=== PATIENT | female | born 1950 | race American Indian/Alaskan Native ===

== ENCOUNTER 2019-04-07 14:29 | Emergency (ER) | payer MEDICARE ==
[2019-04-07 15:17] VITALS: BP 174/100
--- NOTE | 2019-04-07 15:21 | Event Note ---
ED Screening Note Date of service: 04/07/19 Time: 15:15 ED Screening Note: Pt presents with vague complaints of neck pain, abdominal pain, back pain, irght arm pain for the past few days pt has dementia is and is a poor historian No ttp of spine Daughter states she fell a few days ago and seems more confused than normal This initial assessment/diagnostic orders/clinical plan/treatment(s) is/are subject to change based on patients health status, clinical progression and re- assessment by fellow clinical providers in the ED. Further treatment and workup at subsequent clinical providers discretion. Patient/guardian urged not to elope from the ED as their condition may be serious if not clinically assessed and managed. Initial orders include: labs CT UA
--- NOTE | 2019-04-07 16:16 | Cat Scan Report ---
CT BRAIN: 04/07/2019 INDICATION / CLINICAL INFORMATION: altered mental status. COMPARISON: None available. FINDINGS: BRAIN/INTRACRANIAL STRUCTURES: Unenhanced CT images of the brain demonstrate no evidence of acute int racranial abnormality. Ventricles and sulci are normal in size and shape for a patient of this age. There is no evidence of acute ischemic injury, hemorrhage, or mass. There are no abnormal extra-axial fluid collections. EXTRACRANIAL STRUCTURES: Unremarkable. IMPRESSION: No acute abnormality. All CT scans at this location are performed using dose reduction to ALARA by means of automated expos ure control. Signer Name: Riley Win MD Signed: 04/07/2019 4:12 PM Workstation Name: [id number]
--- NOTE | 2019-04-07 16:40 | XRay Report ---
CHEST 2 VIEWS INDICATION / CLINICAL INFORMATION: altered mental status. COMPARISON: None available. FINDINGS: SUPPORT DEVICES: None. HEART / MEDIASTINUM: No significant abnormality. LUNGS / PLEURA: No significant pulmonary or pleural abnormality. No pneumothorax. ADDITIONAL FINDINGS: No significant additional findings. IMPRESSION: 1. No acute findings. Signer Name: Dre Conti MD Signed: 04/07/2019 4:36 PM Workstation Name: [id number]
--- NOTE | 2019-04-07 16:41 | XRay Report ---
Right humerus 2 views INDICATION: Right humerus pain after fall IMPRESSION: No fracture or subluxation of the humerus identified. Signer Name: Dre Conti MD Signed: 04/07/2019 4:37 PM Workstation Name: [id number]
[2019-04-07 17:11] LABS: Basophils # (Auto) 0.1 K/mm3 (0.0-0.1); Basophils % (Auto) 1.3 % (0.0-1.8); Eosinophils # (Auto) 0.1 K/mm3 (0.0-0.4); Hematocrit 37.8 % (30.3-42.9); Hemoglobin 12.5 gm/dl (10.1-14.3); Lymphocytes % (Auto) 38.4 % (13.4-35.0); Mean Corpuscular HGB Conc 33 % (30-34); Mean Corpuscular Volume 83 fl (79-97); Monocytes # (Auto) 0.4 K/mm3 (0.0-0.8); Monocytes % (Auto) 8.2 % (0.0-7.3); Platelet Count 168 K/mm3 (140-440); Red Blood Count 4.54 M/mm3 (3.65-5.03); Red Cell Distribution Width 14.2 % (13.2-15.2)
[2019-04-07 17:14] LABS: Alanine Aminotransferase 8 units/L (7-56); Albumin 4.6 g/dL (3.9-5); BUN/Creatinine Ratio 22; Blood Urea Nitrogen 13 mg/dL (7-17); Hemolysis Index 8
[2019-04-07] MEDS ORDERED: traMADol 50 MG TAB PO ONE (17:20)
[2019-04-07] MEDS ORDERED: METOPROLOL TARTRATE 50 MG TAB PO ONE (17:21)
--- NOTE | 2019-04-07 18:14 | Emergency Department Report ---
ED General Adult HPI - General Chief complaint: Abdominal Pain Stated complaint: BACK/ABD PAIN Time Seen by Provider: 04/07/19 15:15 Source: family Mode of arrival: Ambulatory Limitations: Other - History of Present Illness Initial comments: Patient is a 68-year-old Female with a past medical history of early dementia who is here secondary to having some back and right upper extremity pain past 3 days. Patient's son brought the patient in. The patient and her son a very poor historians. On screening exam patient mentioned that she has some mild a bdominal discomfort as well however she is not complaining of this under my exam. Patient only complaint is that she has pain in the right upper extremity from the elbow to the shoulder. Patient states it is worse with movement but she has no pain with palpation has been no swelling. Patient's daughter states that she also complained of some upper back pain as well. Patient's and family state that she she may have fallen sometime in the last week but they were unable to give any details. Patient denies chest pain or shortness of breath at this time. Severity scale (0 -10): 5 - Related Data Home Medications Medication Instructions Recorded Confirmed Last Taken Aspirin [Aspirin BABY CHEW TAB] 81 mg PO QDAY 05/26/15 02/10/16 02/05/16 09:00 Lovastatin [Altoprev] 20 mg PO QPM 05/26/15 02/10/16 02/09/16 21:00 Cholecalciferol Vit D3 [Vitamin D3] 1,000 unit PO QDAY 02/03/16 02/10/16 02/05/16 09:00 Previous Rx's Medication Instructions Recorded Last Taken Type LORazepam [Ativan] 0.5 mg PO Q6H PRN 2 Days #5 tablet 11/18/17 Unknown Rx Diclofenac Sodium [Voltaren] 100 gm TP Q6H #1 gel..gram. 03/13/18 Unknown Rx Magnesium Citrate [Citrate of 296 ml PO ONCE #1 solution 03/13/18 Unknown Rx Magnesia] traMADol [Ultram 50 MG tab] 50 mg PO Q6HR PRN #11 tablet 03/13/18 Unknown Rx Amlodipine Besylate [Norvasc] 5 mg PO DAILY #30 tablet 04/07/19 Unknown Rx Ibuprofen [Motrin 400 MG tab] 400 mg PO Q8H PRN #20 tablet 04/07/19 Unknown Rx methOCARBAMOL [Robaxin TAB] 500 mg PO Q6H PRN #14 tablet 04/07/19 Unknown Rx Allergies Allergy/AdvReac Type Severity Reaction Status Date / Time No Known Allergies Allergy Verified 05/26/15 09:43 ED Review of Systems ROS: Stated complaint: BACK/ABD PAIN Other details as noted in HPI Comment: All other systems reviewed and negative ED Past Medical Hx - Past Medical History Hx HIV: No - Surgical History Additional Surgical History: Colon resection for colon cancer X3 YRS - Social History Smoking Status: Never Smoker Substance Use Type: None - Medications Home Medications: Home Medications Medication Instructions Recorded Confirmed Last Taken Type Aspirin [Aspirin BABY CHEW TAB] 81 mg PO QDAY 05/26/15 02/10/16 02/05/16 09:00 History Lovastatin [Altoprev] 20 mg PO QPM 05/26/15 02/10/16 02/09/16 21:00 History Cholecalciferol Vit D3 [Vitamin D3] 1,000 unit PO QDAY 02/03/16 02/10/16 02/05/16 09:00 History LORazepam [Ativan] 0.5 mg PO Q6H PRN 2 Days #5 tablet 11/18/17 Unknown Rx Diclofenac Sodium [Voltaren] 100 gm TP Q6H #1 gel..gram. 03/13/18 Unknown Rx Magnesium Citrate [Citrate of 296 ml PO ONCE #1 solution 03/13/18 Unknown Rx Magnesia] traMADol [Ultram 50 MG tab] 50 mg PO Q6HR PRN #11 tablet 03/13/18 Unknown Rx Amlodipine Besylate [Norvasc] 5 mg PO DAILY #30 tablet 04/07/19 Unknown Rx Ibuprofen [Motrin 400 MG tab] 400 mg PO Q8H PRN #20 tablet 04/07/19 Unknown Rx methOCARBAMOL [Robaxin TAB] 500 mg PO Q6H PRN #14 tablet 04/07/19 Unknown Rx ED Physical Exam - General Limitations: Other General appearance: alert, in no apparent distress - Head Head exam: Present: atraumatic, normocephalic - Eye Eye exam: Present: normal appearance, PERRL, EOMI - ENT ENT exam: Present: mucous membranes moist - Neck Neck exam: Present: normal inspection - Respiratory Respiratory exam: Present: normal lung sounds bilaterally. Absent: respiratory distress, wheezes, rales, rhonchi - Cardiovascular Cardiovascular Exam: Present: regular rate, normal rhythm, normal heart sounds. Absent: systolic murmur, diastolic murmur, rubs, gallop - GI/Abdominal GI/Abdominal exam: Present: soft, normal bowel sounds. Absent: distended, tenderness, guarding, rebound - Extremities Exam Extremities exam: Present: normal inspection - Back Exam Back exam: Present: normal inspection - Neurological Exam Neurological exam: Present: alert, oriented X3 - Psychiatric Psychiatric exam: Present: normal affect, normal mood - Skin Skin exam: Present: warm, dry, intact, normal color. Absent: rash ED Course Vital Signs 04/07/19 04/07/19 14:43 17:44 Temperature 98.3 F Pulse Rate 118 H 118 H Respiratory 18 Rate Blood Pressure 174/100 174/100 O2 Sat by Pulse 98 Oximetry ED Medical Decision Making - Lab Data Result diagrams: 04/07/19 15:45 04/07/19 15:45 Lab Results 04/07/19 04/07/19 04/07/19 Range/Units 15:45 15:45 15:45 WBC 5.1 (4.5-11.0) K/mm3 RBC 4.54 (3.65-5.03) M/mm3 Hgb 12.5 (10.1-14.3) gm/dl Hct 37.8 (30.3-42.9) % MCV 83 (79-97) fl MCH 27 L (28-32) pg MCHC 33 (30-34) % RDW 14.2 (13.2-15.2) % Plt Count 168 (140-440) K/mm3 Lymph % (Auto) 38.4 H (13.4-35.0) % [place] % (Auto) 8.2 H (0.0-7.3) % Eos % (Auto) 1.0 (0.0-4.3) % Baso % (Auto) 1.3 (0.0-1.8) % Lymph # 2.0 (1.2-5.4) K/mm3 [place] # 0.4 (0.0-0.8) K/mm3 Eos # 0.1 (0.0-0.4) K/mm3 Baso # 0.1 (0.0-0.1) K/mm3 Seg Neutrophils % 51.1 (40.0-70.0) % Seg Neutrophils # 2.6 (1.8-7.7) K/mm3 Sodium 142 (137-145) mmol/L Potassium 3.9 (3.6-5.0) mmol/L Chloride 104.3 (98-107) mmol/L Carbon Dioxide 22 (22-30) mmol/L Anion Gap 20 mmol/L BUN 13 (7-17) mg/dL Creatinine 0.6 L (0.7-1.2) mg/dL Estimated GFR > 60 ml/min BUN/Creatinine Ratio 22 % Glucose 96 (65-100) mg/dL Calcium 10.0 (8.4-10.2) mg/dL Total Bilirubin 0.80 (0.1-1.2) mg/dL AST 18 (5-40) units/L ALT 8 (7-56) units/L Alkaline Phosphatase 80 (35-129) units/L Troponin T < 0.010 (0.00-0.029) ng/mL Total Protein 8.0 (6.3-8.2) g/dL Albumin 4.6 (3.9-5) g/dL Albumin/Globulin Ratio 1.4 % TSH 0.610 (0.270-4.200) mlU/mL - Radiology Data CT of the head without contrast was within normal limits. X-ray of the right humerus shows no acute process. Chest x-ray also shows no acute process. Patient does have some arthritic changes in the right shoulder and probably in the lower C-spine what is visualized on the x-ray. - Medical Decision Making Patient is a very poor historian and is complaining of pain in the upper back as well as the right upper arm. Because of the patient's poor history giving and because of the possibility of a fall CT of the head was done which was negative for subdural hematoma or other intracranial process. X-ray of the humerus was done also secondary to the possibility of fall and possible fracture which was negative for fracture. Patient's blood pressure was elevated. Family does not believe that she is on blood pressure medications, cannot confirm 100%. Patient was given Lopressor. Patient also given Ultram for her pain. Patient likely is having some cervical radiculopathy-type pain secondary to arthritis in her neck. There is no midline tenderness warranting a x-ray. Patient be discharged home with follow-up with primary care. Critical care attestation.: If time is entered above; I have spent that time in minutes in the direct care of this critically ill patient, excluding procedure time. ED Disposition Clinical Impression: Cervical radiculopathy, Musculoskeletal pain, Hypertensive urgency Fall with injury Qualifiers: Encounter type: initial encounter Qualified Code(s): W19.XXXA - Unspecified fall, initial encounter Disposition: TO HOME OR SELFCARE Is pt being admited?: No Does the pt Need Aspirin: No Condition: Stable Instructions: Hypertension (ED), Cervical Radiculopathy (ED), Musculoskeletal Pain (ED) Referrals: PHU KRISHNAMURTHY MD [Staff Physician] - 3-5 Days Time of Disposition: 18:16
== END 2019-04-07 18:30 | disposition home or self-care (01) ==
LOC: ED 14:29
DX: M54.12 Radiculopathy, cervical region (principal); M79.621 Pain in right upper arm; M54.6 Pain in thoracic spine; I16.0 Hypertensive urgency; Z79.82 Long term (current) use of aspirin; Z79.1 Long term (current) use of non-steroidal anti-inflammatories (NSAID); Z79.899 Other long term (current) drug therapy; W01.198A Fall on same level from slipping, tripping and stumbling with subsequent striking against other object, initial encounter; Y93.89 Activity, other specified; Y92.89 Other specified places as the place of occurrence of the external cause; Y99.8 Other external cause status
CPT/HCPCS: 36415; 70450; 71046; 80053; 84443; 84484; 85025; 99284

== ENCOUNTER 2019-05-25 12:07 | Emergency (ER) | payer MEDICARE ==
[2019-05-25 12:55] LABS: Basophils # (Auto) 0.1 K/mm3 (0.0-0.1); Basophils % (Auto) 1.8 % (0.0-1.8); Eosinophils % (Auto) 0.3 % (0.0-4.3); Hematocrit 37.5 % (30.3-42.9); Hemoglobin 12.5 gm/dl (10.1-14.3); Lymphocytes # (Auto) 1.7 K/mm3 (1.2-5.4); Lymphocytes % (Auto) 36.5 % (13.4-35.0); Mean Corpuscular HGB Conc 33 % (30-34); Mean Corpuscular Volume 84 fl (79-97); Monocytes # (Auto) 0.3 K/mm3 (0.0-0.8); Monocytes % (Auto) 7.4 % (0.0-7.3); Platelet Count 198 K/mm3 (140-440); Red Blood Count 4.48 M/mm3 (3.65-5.03); Red Cell Distribution Width 15.4 % (13.2-15.2)
[2019-05-25 13:16] LABS: Alanine Aminotransferase 8 units/L (7-56); Albumin 4.5 g/dL (3.9-5); BUN/Creatinine Ratio 22; Blood Urea Nitrogen 11 mg/dL (7-17); Calcium 9.9 mg/dL (8.4-10.2); Hemolysis Index 42
[2019-05-25] MEDS ORDERED: KETOROLAC 30 MG/1 ML INJ IV ONE (18:22)
[2019-05-25] MEDS ORDERED: ONDANSETRON 4 MG/2 ML INJ IV ONE (18:22)
[2019-05-25] MEDS ORDERED: SODIUM CHLORIDE 0.9% 1000 ML 1,000 ML IV ONE (18:22)
[2019-05-25] MEDS ORDERED: FAMOTIDINE 20 MG/2 ML INJ IV ONE (18:22)
--- NOTE | 2019-05-25 20:02 | Cat Scan Report ---
CT ABDOMEN AND PELVIS WITH IV CONTRAST INDICATION: svere Abd pain hx of colon cancer and resection. COMPARISON: None available. TECHNIQUE: All CT scans at this facility use dose modulation, automated exposure control, iterative reconstructi on or weight based dosing, when appropriate, to reduce radiation dose to as low as reasonably achieva ble. FINDINGS: Lung Bases: No significant abnormality. Skeletal System: No acute abnormality. ABDOMEN: Liver: There is a punctate hypodensity in the inferior right hepatic lobe, this is too small to kristie cterize but likely a cyst. Liver is otherwise unremarkable. Gallbladder: No significant abnormality. Bile Ducts: No significant abnormality. Pancreas: There is no pancreatic inflammation. The pancreatic duct is mildly prominent. There appears to be accessory duct of Santorini (axial images 73-76). Spleen: No significant abnormality. Adrenals: No significant abnormality. Right Kidney: No significant abnormality. Left Kidney: No significant abnormality. Upper GI tract: No significant abnormality. Lymph Nodes: No significant adenopathy. Aorta: No significant abnormality. Additional Findings: No significant abnormality. PELVIS: Colon: No acute abnormality. Constipation is noted. There are postsurgical changes at the right col on. Urinary Bladder and Distal Ureters: No significant abnormality. Appendix: Not visualized. Lymph Nodes: No significant adenopathy. Additional Findings: There is a complex lesion in the left hemipelvis with apparent cystic and solid components. This measures 5.2 x 4.3 cm on axial image 124. There are prominent left ovarian veins. IMPRESSION: 1. No acute inflammatory process or bowel obstruction. 2. Complex 5.2 x 4.3 cm lesion in the left hemipelvis may be ovarian/adnexal in etiology. This could be a complex/hemorrhagic cyst. Sonographic follow-up is recommended in 4-6 weeks. 3. Constipation. 4. Additional incidental findings as above. Signer Name: Jim Warner MD Signed: 05/25/2019 7:58 PM Workstation Name: [id number]
--- NOTE | 2019-05-25 20:27 | Emergency Department Report ---
ED General Adult HPI - General Chief complaint: Abdominal Pain Stated complaint: STOMACH PAIN Time Seen by Provider: 05/25/19 18:08 Source: patient Mode of arrival: Ambulatory Limitations: No Limitations - History of Present Illness Initial comments: Patient is a 68-year-old Bangl[place] female who is presenting with abdominal pain. Patient is a very poor historian secondary to probable dementia. Patient is having a difficult time giving timeframes for her complaint. Patient is presenting with abdominal discomfort. When asking how long she's had the abdominal discomfort what exactly prompted her to come into the emergency department today she stated that she was upset with how she was treated in the waiting room. I apologize for her weight and for any perceived rudeness that she had to deal with them again asked how can I help her today. Patient was fixated on telling me about things that were not explaining her chief complaint. Patient took quite a bit of time to redirect. Patient did eventually state that she has some abdominal pain was unable to say how long her abdomen is been hurting. She stated at one point that she was vomiting but then also adamantly denied vomiting. It's unknown whether the patient said fevers chills cough cold or congestion. I asked the patient could she give a urine sample and she stated yes however after giving her the urine cup the patient states that she was just going to "hold onto the cup". The patient's son accompanied the patient. Patient's son was in and out of the room quite frequently and also is a poor historian as well. Severity scale (0 -10): 4 - Related Data Home Medications Medication Instructions Recorded Confirmed Last Taken Aspirin [Aspirin BABY CHEW TAB] 81 mg PO QDAY 05/26/15 02/10/16 02/05/16 09:00 Lovastatin [Altoprev] 20 mg PO QPM 05/26/15 02/10/16 02/09/16 21:00 Cholecalciferol Vit D3 [Vitamin D3] 1,000 unit PO QDAY 02/03/16 02/10/16 02/05/16 09:00 Previous Rx's Medication Instructions Recorded Last Taken Type LORazepam [Ativan] 0.5 mg PO Q6H PRN 2 Days #5 tablet 11/18/17 Unknown Rx Diclofenac Sodium [Voltaren] 100 gm TP Q6H #1 gel..gram. 03/13/18 Unknown Rx Magnesium Citrate [Citrate of 296 ml PO ONCE #1 solution 03/13/18 Unknown Rx Magnesia] traMADoL [Ultram 50 MG tab] 50 mg PO Q6HR PRN #11 tablet 03/13/18 Unknown Rx Amlodipine Besylate [Norvasc] 5 mg PO DAILY #30 tablet 04/07/19 Unknown Rx Ibuprofen [Motrin 400 MG tab] 400 mg PO Q8H PRN #20 tablet 04/07/19 Unknown Rx methOCARBAMOL [Robaxin TAB] 500 mg PO Q6H PRN #14 tablet 04/07/19 Unknown Rx Dicyclomine [Bentyl] 20 mg PO QID #10 tablet 05/25/19 Unknown Rx Docusate Sodium [Colace] 100 mg PO BID #30 capsule 05/25/19 Unknown Rx Nitrofurantoin [place]/M-Cryst 100 mg PO Q12HR #14 capsule 05/25/19 Unknown Rx [Macrobid CAP] traMADoL [Ultram] 50 mg PO Q6HR PRN #12 tablet 05/25/19 Unknown Rx Allergies Allergy/AdvReac Type Severity Reaction Status Date / Time No Known Allergies Allergy Verified 05/26/15 09:43 ED Review of Systems ROS: Stated complaint: STOMACH PAIN Other details as noted in HPI Comment: Unobtainable due to pts medical conditions ED Past Medical Hx - Past Medical History Hx HIV: No - Surgical History Additional Surgical History: Colon resection for colon cancer X3 YRS - Social History Smoking Status: Never Smoker - Medications Home Medications: Home Medications Medication Instructions Recorded Confirmed Last Taken Type Aspirin [Aspirin BABY CHEW TAB] 81 mg PO QDAY 05/26/15 02/10/16 02/05/16 09:00 History Lovastatin [Altoprev] 20 mg PO QPM 05/26/15 02/10/16 02/09/16 21:00 History Cholecalciferol Vit D3 [Vitamin D3] 1,000 unit PO QDAY 02/03/16 02/10/16 02/05/16 09:00 History LORazepam [Ativan] 0.5 mg PO Q6H PRN 2 Days #5 tablet 11/18/17 Unknown Rx Diclofenac Sodium [Voltaren] 100 gm TP Q6H #1 gel..gram. 03/13/18 Unknown Rx Magnesium Citrate [Citrate of 296 ml PO ONCE #1 solution 10/16/18 Unknown Rx Magnesia] traMADoL [Ultram 50 MG tab] 50 mg PO Q6HR PRN #11 tablet 03/13/18 Unknown Rx Amlodipine Besylate [Norvasc] 5 mg PO DAILY #30 tablet 04/07/19 Unknown Rx Ibuprofen [Motrin 400 MG tab] 400 mg PO Q8H PRN #20 tablet 04/07/19 Unknown Rx methOCARBAMOL [Robaxin TAB] 500 mg PO Q6H PRN #14 tablet 04/07/19 Unknown Rx Dicyclomine [Bentyl] 20 mg PO QID #10 tablet 05/25/19 Unknown Rx Docusate Sodium [Colace] 100 mg PO BID #30 capsule 05/25/19 Unknown Rx Nitrofurantoin [place]/M-Cryst 100 mg PO Q12HR #14 capsule 05/25/19 Unknown Rx [Macrobid CAP] traMADoL [Ultram] 50 mg PO Q6HR PRN #12 tablet 05/25/19 Unknown Rx ED Physical Exam - General Limitations: No Limitations General appearance: alert, in no apparent distress - Head Head exam: Present: atraumatic, normocephalic - Eye Eye exam: Present: normal appearance, PERRL, EOMI - ENT ENT exam: Present: mucous membranes moist - Neck Neck exam: Present: normal inspection - Respiratory Respiratory exam: Present: normal lung sounds bilaterally. Absent: respiratory distress, wheezes, rales, rhonchi - Cardiovascular Cardiovascular Exam: Present: regular rate, normal rhythm. Absent: systolic murmur, diastolic murmur, rubs, gallop - GI/Abdominal GI/Abdominal exam: Present: soft, tenderness (diffuse), normal bowel sounds. Absent: distended, guarding, rebound, rigid - Extremities Exam Extremities exam: Present: normal inspection - Back Exam Back exam: Present: normal inspection - Neurological Exam Neurological exam: Present: alert, oriented X3 - Psychiatric Psychiatric exam: Present: normal affect, normal mood - Skin Skin exam: Present: warm, dry, intact, normal color. Absent: rash ED Course Vital Signs 05/25/19 05/25/19 05/25/19 12:09 19:35 20:05 Temperature 98.1 F Pulse Rate 106 H Respiratory 18 18 16 Rate Blood Pressure 142/89 O2 Sat by Pulse 100 Oximetry - Reevaluation(s) Reevaluation #1: 05/25/19 20:26 Attempted to explain the patient's CT findings to the patient and her son. He does express understanding and that he he will need to take her to a senior medical technologist for further management. Patient's CT shows a hemorrhagic adnexal masses likely hemorrhagic cyst however tumor or malignancy cannot be ruled out at this time. Also at this time we are attempting to perform a straight cath on the patient. Patient for the last several hours is just been holding onto the urine cup and will not give a urine sample. I would like to see a urinalysis before discharge and patient as infection has not been ruled out. Patient does state she has a burning sensation in the lower abdomen currently. ED Medical Decision Making - Lab Data Result diagrams: 05/25/19 12:37 05/25/19 12:37 Lab Results 05/25/19 05/25/19 05/25/19 Range/Units 12:37 12:37 20:43 WBC 4.6 (4.5-11.0) K/mm3 RBC 4.48 (3.65-5.03) M/mm3 Hgb 12.5 (10.1-14.3) gm/dl Hct 37.5 (30.3-42.9) % MCV 84 (79-97) fl MCH 28 (28-32) pg MCHC 33 (30-34) % RDW 15.4 H (13.2-15.2) % Plt Count 198 (140-440) K/mm3 Lymph % (Auto) 36.5 H (13.4-35.0) % [place] % (Auto) 7.4 H (0.0-7.3) % Eos % (Auto) 0.3 (0.0-4.3) % Baso % (Auto) 1.8 (0.0-1.8) % Lymph # 1.7 (1.2-5.4) K/mm3 [place] # 0.3 (0.0-0.8) K/mm3 Eos # 0.0 (0.0-0.4) K/mm3 Baso # 0.1 (0.0-0.1) K/mm3 Seg Neutrophils % 54.0 (40.0-70.0) % Seg Neutrophils # 2.5 (1.8-7.7) K/mm3 Sodium 137 (137-145) mmol/L Potassium 4.1 (3.6-5.0) mmol/L Chloride 102.3 (98-107) mmol/L Carbon Dioxide 23 (22-30) mmol/L Anion Gap 16 mmol/L BUN 11 (7-17) mg/dL Creatinine 0.5 L (0.7-1.2) mg/dL Estimated GFR > 60 ml/min BUN/Creatinine Ratio 22 % Glucose 115 H (65-100) mg/dL Calcium 9.9 (8.4-10.2) mg/dL Total Bilirubin 0.80 (0.1-1.2) mg/dL AST 20 (5-40) units/L ALT 8 (7-56) units/L Alkaline Phosphatase 71 (35-129) units/L Total Protein 7.8 (6.3-8.2) g/dL Albumin 4.5 (3.9-5) g/dL Albumin/Globulin Ratio 1.4 % Urine Color Straw (Yellow) Urine Turbidity Clear (Clear) Urine pH 6.0 (5.0-7.0) Ur Specific [place] 1.010 (1.003-1.030) Urine Protein <15 mg/dl (Negative) mg/dL Urine Glucose (UA) Neg (Negative) mg/dL Urine Ketones Tr (Negative) mg/dL Urine Blood Neg (Negative) Urine Nitrite Neg (Negative) Urine Bilirubin Neg (Negative) Urine Urobilinogen < 2.0 (<2.0) mg/dL Ur Leukocyte Esterase Sm (Negative) Urine WBC (Auto) 3.0 (0.0-6.0) /HPF Urine RBC (Auto) 1.0 (0.0-6.0) /HPF U Epithel Cells (Auto) 1.0 (0-13.0) /HPF Urine Mucus Few /HPF - Radiology Data CT ABDOMEN AND PELVIS WITH IV CONTRAST INDICATION: svere Abd pain hx of colon cancer and resection. COMPARISON: None available. TECHNIQUE: All CT scans at this facility use dose modulation, automated exposure control, iterative reconstruction or weight based dosing, when appropriate, to reduce radiation dose to as low as reasonably achievable. FINDINGS: Lung Bases: No significant abnormality. Skeletal System: No acute abnormality. ABDOMEN: Liver: There is a punctate hypodensity in the inferior right hepatic lobe, this is too small to characterize but likely a cyst. Liver is otherwise unremarkable. Gallbladder: No significant abnormality. Bile Ducts: No significant abnormality. Pancreas: There is no pancreatic inflammation. The pancreatic duct is mildly prominent. There appears to be accessory duct of Santorini (axial images 73-76). Spleen: No significant abnormality. Adrenals: No significant abnormality. Right Kidney: No significant abnormality. Left Kidney: No significant abnormality. Upper GI tract: No significant abnormality. Lymph Nodes: No significant adenopathy. Aorta: No significant abnormality. Additional Findings: No significant abnormality. PELVIS: Colon: No acute abnormality. Constipation is noted. There are postsurgical changes at the right colon. Urinary Bladder and Distal Ureters: No significant abnormality. Appendix: Not visualized. Lymph Nodes: No significant adenopathy. Additional Findings: There is a complex lesion in the left hemipelvis with appa rent cystic and solid components. This measures 5.2 x 4.3 cm on axial image 124. There are prominent left ovarian veins. IMPRESSION: 1. No acute inflammatory process or bowel obstruction. 2. Complex 5.2 x 4.3 cm lesion in the left hemipelvis may be ovarian/adnexal in etiology. This could be a complex/hemorrhagic cyst. Sonographic follow-up is recommended in 4-6 weeks. 3. Constipation. 4. Additional incidental findings as above. Signer Name: Jim Warner MD Signed: 05/25/2019 7:58 PM Workstation Name: [id number] Transcribed By: DINO Dictated By: Jim Warner MD Electronically Authenticated By: Jim Warner MD Signed Date/Time: 05/25/191957 - Medical Decision Making Patient is a 68-year-old female presenting with generalized abdominal discomfort. CT shows she does have some mild constipation the patient be given as her to help soften her stool however she also has a neck Mass likely an ovarian cyst. Patient also has a mild UTI. Patient has been encouraged to see MONITORING ANALYST in the next several weeks. The hemorrhagic cyst will need follow-up and malignancy has not been ruled out at this time. Critical care attestation.: If time is entered above; I have spent that time in minutes in the direct care of this critically ill patient, excluding procedure time. ED Disposition Clinical Impression: Hemorrhagic ovarian cyst Constipation Qualifiers: Constipation type: slow transit constipation Qualified Code(s): K59.01 - Slow transit constipation UTI (urinary tract infection) Qualifiers: Urinary tract infection type: acute cystitis Hematuria presence: without hematuria Qualified Code(s): N30.00 - Acute cystitis without hematuria Disposition: TO HOME OR SELFCARE Is pt being admited?: No Does the pt Need Aspirin: No Condition: Stable Instructions: Ovarian Cyst (ED), Urinary Tract Infection in Women (ED) Referrals: PRIMARY CARE, [Primary Care Provider] - 3-5 Days Time of Disposition: 21:53
[2019-05-25 21:03] LABS: Bilirubin,Urine NEG (Negative); Blood,Urine NEG (Negative); Color,Urine Straw (Yellow); Mucus,Urine FEW /HPF; Protein,Urine <15 mg/dL mg/dL (Negative); Urobilinogen,Urine < 2.0 mg/dL (<2.0)
[2019-05-25 22:14] VITALS: BP 140/89
== END 2019-05-25 22:05 | disposition home or self-care (01) ==
LOC: ED 12:07
DX: N39.0 Urinary tract infection, site not specified (principal); K59.01 Slow transit constipation; N83.202 Unspecified ovarian cyst, left side
CPT/HCPCS: 36415; 74177; 80053; 81001; 85025; 96374; 96375; 99284; J1885; J2405; J7030; Q9967